=== PATIENT | female | born 1990 | race Caucasian/White ===

== ENCOUNTER 2020-07-20 16:59 | Emergency (ER) | payer BC, OTHER, SELFPAY ==
--- NOTE | ~2020-07-20 | XR_ITS ---
EXAMINATION: XR CHEST CLINICAL INFORMATION: Cough COMPARISON: None TECHNIQUE: Frontal view of the chest was obtained. FINDINGS: No significant abnormality is noted involving the heart, lungs, mediastinum, bony thorax or soft tissues. XR/XR chest 1V IMPRESSION: No radiographic evidence of pneumonia. No acute pulmonary process.
[2020-07-20 17:07] VITALS: BP 143/77; PULSE 96; RESP 20; TEMP 37.3; O2SAT 98; BMI 29.9
[2020-07-20 18:06] LABS: Glucose Urine UA NEG (NEG); Leukocyte Esterase Urine NEG (NEG); Nitrite Urine NEG (NEG); Specific Gravity - Urine 1.015 (1.005-1.025); Urine Blood NEG (NEG); Urine Ketones NEG (NEG); Urine Protein NEG (NEG-TRACE)
[2020-07-20 18:08] LABS: Appearance Urine CLEAR; Color Urine YELLOW
[2020-07-20 18:09] LABS: UPreg QC Valid YES; Urine Pregnancy NEGATIVE (NEGATIVE)
--- NOTE | 2020-07-20 18:22 | ED.GENADULT ---
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 on Wednesday complaint: viral syndrome Onset (ago): day(s) (2) Severity: mild Quality: aching Pain Consistency: constant Relieving factors: none Exacerbating factors: none Associated symptoms: fever/chills, headaches, loss of appetite, malaise, nausea/vomiting and other (back pain, sore throat) Treatments prior to arrival: NSAID Related Data Previous Rx's Medication Instructions Recorded cyclobenzaprine 10 mg PO TID PRN #14 tab 07/20/20 ibuprofen 600 mg PO Q6H PRN #30 tab 07/20/20 lidocaine 1 patch TOPICAL DAILY PRN #10 ea 07/20/20 ondansetron 4 mg PO Q8H PRN #20 tab 07/20/20 Allergies Allergy/AdvReac Type Severity Reaction Status Date / Time No Known Allergies Allergy Unverified 12/07/19 16:17 Review of Systems Review of Systems: Constitutional : positive Fever, positive Chills, positive fatigue, positive Malaise ENT/Mouth : positive sore throat, no runny nose Eyes: No Discharge Cardiovascular : No Chest Pain, No SOB Respiratory : No Cough, No Sputum Gastrointestinal : pos Nausea, pos Vomiting, pos Diarrhea Genitourinary : No Dysuria, No Urinary Frequency Musculoskeletal : positive Myalgia Skin : No rash Neuro : pos Headache All other systems reviewed and are negative [facility] Past Medical History Attestation statement: The following information was validated with the patient. Medical History Asthma Social History Social History (Updated 07/20/20 @ 18:59 by Lexus Cortes DO) Alcohol intake: never Smoking Status: Never smoker Use of substances other than those prescribed or required for medical reasons: No Advance Directives: No Advance Directives Information Provided: No Physical Exam Vital Signs: Vital Signs: Last Vital Signs Temp 98 F 07/20/20 20:31 Pulse 70 07/20/20 20:31 Resp 18 07/20/20 20:31 BP 124/70 07/20/20 20:31 Pulse Ox 99 07/20/20 20:31 Body Mass Index 29.9 Appearance: Alert. Oriented X3. No acute distress. Eyes: Pupils equal, round and reactive to light. ENT: Pharynx normal. Neck: Normal inspection. Neck supple. CVS: Normal heart rate and rhythm. Pulses normal. Respiratory: No respiratory distress. Breath sounds normal. Abdomen: Soft and nontender. Back: ttp along bilateral lower spine paraspinals no midline ttp Skin: Skin warm and dry. Normal skin color. Normal skin turgor. Extremities: No lower extremity edema. No calf ttp Neuro: Oriented X 3. No motor deficit. No sensory deficit. Course Course Course Narrative: no acute findings, does feel better, will send off flu, stable for DC labs and VS reassuring patient made aware of negative SARS/FLU/RSV Medical Decision Making MDM Narrative Medical decision making narrative: 29 yo female with viral like illness, sore throat n/v/d low back pain at this time will need labs, test, COVID swab, rapid strep, gentle fluids and medications to help her feel improved Lab Data Result diagrams: 07/20/20 19:22 07/20/20 19:21 Labs: Lab Results 07/20/20 07/20/20 07/20/20 Range/Units 17:41 17:53 17:53 WBC (4.8-10.8) X10*3/uL RBC (4.20-5.50) X10*6/uL Hgb (12.0-16.0) g/dl Hct (37-47) % MCV (80-98) fL MCH (27.0-33.0) pg MCHC (31.0-35.0) g/dl RDW (11.0-16.0) % Plt Count (160-400) X10*3/uL MPV (9.4-12.3) fL Immature Gran % (Auto) (0.0-0.4) % Neut % (Auto) (45-73) % Lymph % (Auto) (20-40) % Garden % (Auto) (2-11) % Eos % (Auto) (0-4) % Baso % (Auto) (0-2) % Lymph # (Auto) (1.2-4.9) X10*3/uL Garden # (Auto) (0.1-1.2) X10*3/uL Eos # (Auto) (0.0-0.4) X10*3/uL Baso # (Auto) (0.0-0.2) X10*3/uL Abs Immat Gran (auto) (0.00-0.03) X10*3/uL Absolute Neuts (auto) (2.0-8.3) X10*3/uL Absolute Nucleated RBC (0.0-0.012) X10*3/uL Nucleated RBC % (auto) (0.0-0.2) /100WBC Hold Blue Top Sodium (135-145) mmol/L Potassium (3.3-5.1) mmol/L Chloride (96-108) mmol/L Carbon Dioxide (22-29) mmol/L Anion Gap (12-20) BUN (9-16) mg/dL Creatinine (0.5-1.4) mg/dL Estim Creat Clear Calc Estimated GFR Random Glucose (60-115) mg/dL Calcium (8.4-10.2) mg/dL Magnesium (1.6-2.6) mg/dL Total Bilirubin (0.0-1.0) mg/dL Direct Bilirubin (0.0-0.5) mg/dL AST (5-31) U/L ALT (0-31) U/L Alkaline Phosphatase (39-117) U/L Total Protein (6.5-8.0) g/dL Albumin (3.5-5.0) g/dL Lipase (8-78) U/L Urine Color YELLOW Urine Appearance CLEAR Urine pH 7.0 (5.0-8.0) Ur Specific [place] 1.015 (1.005-1.025) Urine Protein NEG (NEG-TRACE) MG/DL Urine Glucose (UA) NEG (NEG) MG/DL Urine Ketones NEG (NEG) MG/DL Urine Blood NEG (NEG) Urine Nitrite NEG (NEG) Ur Leukocyte Esterase NEG (NEG) Urine Test NEGATIVE (NEGATIVE) Coronavirus (PCR) (Negative) COVID-19 (CHRISTINE) Negative (Negative) COVID-19 Clin Com See Note Influenza Type A (PCR) (Negative) Influenza Type B (PCR) (Negative) RSV RNA Qual (PCR) (Negative) 07/20/20 07/20/20 07/20/20 Range/Units 19:21 19:21 19:22 WBC 7.8 (4.8-10.8) X10*3/uL RBC 4.53 (4.20-5.50) X10*6/uL Hgb 13.6 (12.0-16.0) g/dl Hct 39.5 (37-47) % MCV 87.2 (80-98) fL MCH 30.0 (27.0-33.0) pg MCHC 34.4 (31.0-35.0) g/dl RDW 12.5 (11.0-16.0) % Plt Count 288 (160-400) X10*3/uL MPV 9.1 L (9.4-12.3) fL Immature Gran % (Auto) 0.3 (0.0-0.4) % Neut % (Auto) 66.3 (45-73) % Lymph % (Auto) 20.8 (20-40) % Garden % (Auto) 10.1 (2-11) % Eos % (Auto) 2.1 (0-4) % Baso % (Auto) 0.4 (0-2) % Lymph # (Auto) 1.6 (1.2-4.9) X10*3/uL Garden # (Auto) 0.8 (0.1-1.2) X10*3/uL Eos # (Auto) 0.2 (0.0-0.4) X10*3/uL Baso # (Auto) 0.0 (0.0-0.2) X10*3/uL Abs Immat Gran (auto) 0.02 (0.00-0.03) X10*3/uL Absolute Neuts (auto) 5.2 (2.0-8.3) X10*3/uL Absolute Nucleated RBC 0.000 (0.0-0.012) X10*3/uL Nucleated RBC % (auto) 0.0 (0.0-0.2) /100WBC Hold Blue Top Sodium 141 (135-145) mmol/L Potassium 3.8 (3.3-5.1) mmol/L Chloride 104 (96-108) mmol/L Carbon Dioxide 26 (22-29) mmol/L Anion Gap 15 (12-20) BUN 5 L (9-16) mg/dL Creatinine 0.77 (0.5-1.4) mg/dL Estim Creat Clear Calc 113.7 Estimated GFR > 60 Random Glucose 82 (60-115) mg/dL Calcium 9.5 (8.4-10.2) mg/dL Magnesium 2.0 (1.6-2.6) mg/dL Total Bilirubin 1.0 (0.0-1.0) mg/dL Direct Bilirubin 0.3 (0.0-0.5) mg/dL AST 21 (5-31) U/L ALT 25 (0-31) U/L Alkaline Phosphatase 68 (39-117) U/L Total Protein 6.9 (6.5-8.0) g/dL Albumin 4.5 (3.5-5.0) g/dL Lipase 21 (8-78) U/L Urine Color Urine Appearance Urine pH (5.0-8.0) Ur Specific [place] (1.005-1.025) Urine Protein (NEG-TRACE) MG/DL Urine Glucose (UA) (NEG) MG/DL Urine Ketones (NEG) MG/DL Urine Blood (NEG) Urine Nitrite (NEG) Ur Leukocyte Esterase (NEG) Urine Test (NEGATIVE) Coronavirus (PCR) (Negative) COVID-19 (CHRISTINE) (Negative) COVID-19 Clin Com Influenza Type A (PCR) (Negative) Influenza Type B (PCR) (Negative) RSV RNA Qual (PCR) (Negative) 07/20/20 07/20/20 Range/Units 19:22 20:42 WBC (4.8-10.8) X10*3/uL RBC (4.20-5.50) X10*6/uL Hgb (12.0-16.0) g/dl Hct (37-47) % MCV (80-98) fL MCH (27.0-33.0) pg MCHC (31.0-35.0) g/dl RDW (11.0-16.0) % Plt Count (160-400) X10*3/uL MPV (9.4-12.3) fL Immature Gran % (Auto) (0.0-0.4) % Neut % (Auto) (45-73) % Lymph % (Auto) (20-40) % Garden % (Auto) (2-11) % Eos % (Auto) (0-4) % Baso % (Auto) (0-2) % Lymph # (Auto) (1.2-4.9) X10*3/uL Garden # (Auto) (0.1-1.2) X10*3/uL Eos # (Auto) (0.0-0.4) X10*3/uL Baso # (Auto) (0.0-0.2) X10*3/uL Abs Immat Gran (auto) (0.00-0.03) X10*3/uL Absolute Neuts (auto) (2.0-8.3) X10*3/uL Absolute Nucleated RBC (0.0-0.012) X10*3/uL Nucleated RBC % (auto) (0.0-0.2) /100WBC Hold Blue Top SEE NOTE Sodium (135-145) mmol/L Potassium (3.3-5.1) mmol/L Chloride (96-108) mmol/L Carbon Dioxide (22-29) mmol/L Anion Gap (12-20) BUN (9-16) mg/dL Creatinine (0.5-1.4) mg/dL Estim Creat Clear Calc Estimated GFR Random Glucose (60-115) mg/dL Calcium (8.4-10.2) mg/dL Magnesium (1.6-2.6) mg/dL Total Bilirubin (0.0-1.0) mg/dL Direct Bilirubin (0.0-0.5) mg/dL AST (5-31) U/L ALT (0-31) U/L Alkaline Phosphatase (39-117) U/L Total Protein (6.5-8.0) g/dL Albumin (3.5-5.0) g/dL Lipase (8-78) U/L Urine Color Urine Appearance Urine pH (5.0-8.0) Ur Specific [place] (1.005-1.025) Urine Protein (NEG-TRACE) MG/DL Urine Glucose (UA) (NEG) MG/DL Urine Ketones (NEG) MG/DL Urine Blood (NEG) Urine Nitrite (NEG) Ur Leukocyte Esterase (NEG) Urine Test (NEGATIVE) Coronavirus (PCR) NEGATIVE (Negative) COVID-19 (CHRISTINE) (Negative) COVID-19 Clin Com Influenza Type A (PCR) NEGATIVE (Negative) Influenza Type B (PCR) NEGATIVE (Negative) RSV RNA Qual (PCR) NEGATIVE (Negative) Discharge Plan Discharge Clinical Impression: Viral infection Patient Disposition: Home, Self-Care Instructions: Viral Syndrome (ED) Additional Instructions: return to ED for any worsening symptoms or concerns your COVID was negative, flu pending I will call you with results Prescriptions: New cyclobenzaprine 10 mg tablet 10 mg PO TID PRN (Reason: muscle spasm) Qty: 14 RF: 0 lidocaine 4 % adhesive patch,medicated 1 patch topical DAILY PRN (Reason: pain) Qty: 10 RF: 0 ibuprofen 600 mg tablet 600 mg PO Q6H PRN (Reason: pain) Qty: 30 RF: 0 ondansetron 4 mg tablet,disintegrating 4 mg PO Q8H PRN (Reason: nausea and vomiting) Qty: 20 RF: 0 Referrals: Vitor Rosado MD [Primary Care Provider] - 3 days (if not better) Stand Alone Forms: Work/School Release Interventions: ED Discharge Assessment Last Done: 07/20/20 21:28 Discharge Date/Time: 07/20/20 21:28
[2020-07-20 19:07] LABS: COVID-19 Test Negative (Negative)
[2020-07-20 19:13] VITALS: BP 127/80; PULSE 78; RESP 16; TEMP 37.3; O2SAT 100
[2020-07-20] MEDS: 0.9 % Sodium Chloride 1,000 ML 999 ML IVCONT (19:21)
[2020-07-20] MEDS: Cyclobenzaprine HCl 10 MG TABLET PO (19:21)
[2020-07-20] MEDS: Ketorolac Tromethamine 30 MG/ML VIAL IVPUSH (19:21)
[2020-07-20] MEDS: ondansetron HCL 4 MG/2 ML VIAL IVPUSH (19:21)
[2020-07-20 19:30] LABS: MANUAL DIFF FLAG NO
[2020-07-20 19:32] LABS: Basophils Percent Auto 0.4 % (0-2); Eosinophils Absolute Auto 0.2 X10*3/uL (0.0-0.4); Eosinophils Percent Auto 2.1 % (0-4); Hematocrit 39.5 % (37-47); Hemoglobin 13.6 g/dl (12.0-16.0); Imm Gran Abs Auto 0.02 X10*3/uL (0.00-0.03); Imm Gran Pct Auto 0.3 % (0.0-0.4); Lymphocytes Absolute Auto 1.6 X10*3/uL (1.2-4.9); Lymphocytes Percent Auto 20.8 % (20-40); Mean Corpuscular HGB Conc 34.4 g/dl (31.0-35.0); Mean Corpuscular Volume 87.2 fL (80-98); Mean Platelet Volume 9.1 fL (9.4-12.3); Monocytes Absolute Auto 0.8 X10*3/uL (0.1-1.2); Monocytes Percent Auto 10.1 % (2-11); Neutrophils Absolute Auto 5.2 X10*3/uL (2.0-8.3); Neutrophils Percent Auto 66.3 % (45-73); Platelet Count 288 X10*3/uL (160-400); Red Blood Count 4.53 X10*6/uL (4.20-5.50); Red Cell Distribution Width 12.5 % (11.0-16.0); White Blood Count 7.8 X10*3/uL (4.8-10.8)
[2020-07-20 20:02] LABS: Anion Gap 15 (12-20); Blood Urea Nitrogen 5 mg/dL (9-16); Calcium 9.5 mg/dL (8.4-10.2); Carbon Dioxide 26 mmol/L (22-29); Chloride 104 mmol/L (96-108); Creatinine Clr Calc Pharmacy 113.7; Estimated Glomerular Filt Rate > 60; Glucose Random 82 mg/dL (60-115); Potassium 3.8 mmol/L (3.3-5.1); Sodium 141 mmol/L (135-145)
[2020-07-20 20:03] LABS: Alanine Aminotransferase 25 U/L (0-31); Albumin Level 4.5 g/dL (3.5-5.0); Alkaline Phosphatase 68 U/L (39-117); Aspartate Amino Transferase 21 U/L (5-31); Bilirubin Direct 0.3 mg/dL (0.0-0.5); Lipase 21 U/L (8-78); Total Protein 6.9 g/dL (6.5-8.0)
[2020-07-20 20:31] VITALS: BP 124/70; PULSE 70; RESP 18; TEMP 36.6; O2SAT 99
[2020-07-20 21:25] LABS: Influenza A PCR NEGATIVE (Negative); Influenza B PCR NEGATIVE (Negative); Resp Syncy Virus RNA Qual PCR NEGATIVE (Negative); SARS COV2 PCR INHOUSE NEGATIVE (Negative)
== END 2020-07-20 21:28 | disposition home or self-care (01) ==
PROVIDERS: Emergency Provider Emergency Medicine; PCP Family Medicine
DX: B34.9 Viral infection, unspecified (principal); R50.9 Fever, unspecified; R51.9 Headache, unspecified; Z20.822 Contact with and (suspected) exposure to COVID-19; Z79.899 Other long term (current) drug therapy
CPT/HCPCS: 0241U; 36415; 71045; 80048; 80076; 81003; 81025; 83690; 83735; 85025; 87071; 87635; 87880; 96365; 96375; 99285; J1885; J2405

== ENCOUNTER 2022-06-01 12:03 | Emergency (ER) | payer BC, OTHER, SELFPAY ==
[2022-06-01 12:12] VITALS: BP 109/73; PULSE 96; O2SAT 98
[2022-06-01 12:21] VITALS: BP 146/83; PULSE 89; RESP 16; TEMP 37.1; O2SAT 98; BMI 32.5
--- OUTSIDE RECORDS SUMMARY | 2022-06-01 13:04 | XMS_ITS | Continuity of Care Document ---
:1990 Author Organization [facility] [place] Adult Address [address] [place] [address]- Care Team Providers Name Role Phone Alonzo GONZALES, Vitor Schmidt Primary Care Physician Encounter [facility] Date(s): 04/18/20 - 05/18/20 [facility] [place] Adult [address] [place] [address]- Allergies, Adverse Reactions, Alerts Substance Reaction Severity Status Dust Active Pollen1 Active 1trees Immunizations Given and Recorded Vaccine Date Status Refusal Reason tetanus/diphtheria/pertussis, acel(Tdap) 09/06/10 Given Medications amitriptyline 10 mg oral tablet 10 mg, 1, tablet, By Mouth, Daily at bedtime, # 30 tablet, Refills 2, Tot. Refills 2, Maintenance, 04/19/20 16:29:00 EST, Route to Pharmacy Electronically, [facility]/pharmacy #[id number], Partial fill upon patientrequest if the prescription is for a schedule II... Start Date: 04/19/20 Status: OrderedMultivitamin Daily, 0 Refills, Maintenance, 11/19/18 10:50:09 EDT Start Date: 11/19/18 Status: OrderedProbiotic Formula By Mouth, Daily, 0 Refills, Maintenance, 11/08/19 10:36:00 EDT Start Date: 11/08/19 Status: Ordered Problem List Condition Effective Dates Status Health Status Informant Allergic rhinitis(Confirmed) Active Herpes, genital(Confirmed) Active Migraine(Confirmed) Active Depression with anxiety(Confirmed) Active Dyspareunia, female(Confirmed) Active (Confirmed) Active TMJ disease(Confirmed) Active Social History Social History Type Response Smoking Status Former smoker; Other: Quit 2 010; entered on: 09/20/13 Sex
--- OUTSIDE RECORDS SUMMARY | 2022-06-01 13:04 | XMS_ITS | Continuity of Care Document ---
:1990 Author Organization [facility] Address [address] [place] [address]- Care Team Providers Name Role Phone Alonzo GONZALES, Vitor Schmidt Primary Care Physician Encounter [facility] [place] Date(s): 01/24/21 - 01/31/21 [facility] [address] [place], [place] [address] Attending Physician: Not on Staff, Attending MD Allergies, Adverse Reactions, Alerts Substance Reaction Severity Status Dust Active Pollen1 Active 1trees Immunizations Given and Recorded Vaccine Date Status Refusal Reason tetanus/diphtheria/pertussis, acel(Tdap) 09/06/10 Given Medications Diflucan 150 mg oral tablet 1 tablet = 150 mg, By Mouth, Every 48 hours, take 1 tablet today, then if still symptomatic in 48, #2 tablet, 0 Refills, Maintenance, 01/27/21 10:28:00 EST, Tablet, [id number], Partial fill upon patient request if the prescription is for a sc... Start Date: 01/27/21 Stop Date: 01/29/21 Status: OrderedMultivitamin Daily, 0 Refills, Maintenance, 11/19/18 [...]
--- OUTSIDE RECORDS SUMMARY | 2022-06-01 13:04 | XMS_ITS | Continuity of Care Document ---
:1990 Author Organization [facility] Adult Address [address] [place] [address]- Care Team Providers Name Role Phone Vitor Rosado MD Primary Care Physician Encounter [facility] [place] Date(s): 03/24/19 - 05/24/19 [facility] Adult [address] [place] [address]- [facility] Attending Physician: Vitor Rosado MD Allergies, Adverse Reactions, Alerts Substance Reaction Severity Status Dust Active Pollen1 Active 1trees Immunizations Given and Recorded Vaccine Date Status Refusal Reason tetanus/diphtheria/pertussis, acel(Tdap) 09/06/10 Given Medications clonazePAM 0.5 mg oral tablet 1 tablet = 0.5 mg, By Mouth, 2 times a day, PRN vertigo, # 60 tablet, 1 Refills, Maintenance, 12/15/18 7:32:46 EDT Start Date: 12/15/18 Status: OrderedFLUoxetine 10 mg oral tablet 1 tablet = 10 mg, By Mouth, Daily, # 30 tablet, 5 Refills, Maintenance, 04/25/19 6:55:00 EST, Tablet, [facility]/pharmacy #[id number], 165, cm, 03/24/19 8:47:00 EST, Height, 74.1, kg, 11/01/18 0:13:00 EDT, Dry Weight Start Date: 04/25/19 Status: OrderedMultivitamin Daily, 0 Refills, Maintenance, 11/19/18 10:50:09 EDT Start Date: 11/19/18 Status: OrderedOrtho Micronor 0.35 mg oral tablet 1 tablet = 0.35 mg, By Mouth, Daily, # 28 tablet, 11 Refills, Maintenance, 01/24/19 13:35:54 EST, Tablet Start Date: 01/24/19 Status: OrderedProvera 10 mg oral tablet 10 mg, 1, tablet, By Mouth, 2 times a day, # 24 tablet, Refills 0, Tot. Refills 0, Maintenance, 12/30/18 13:36:32 EDT, Route to Pharmacy Electronically, [id number], [facility]/pharmacy #[id number] Start Date: 12/30/18 Stop Date: 01/11/19 Status: Ordered Problem List Condition Effective Dates Status Health Status Informant Allergic rhinitis(Confirmed) Active Herpes, genital(Confirmed) Active Migraine(Confirmed) Active Depression with anxiety(Confirmed) Active (Confirmed) Active TMJ disease(Confirmed) Active Social History Social History Type Response Smoking Status Former smoker; Other: Quit 2 010; entered on: 09/20/13 Sex
--- OUTSIDE RECORDS SUMMARY | 2022-06-01 13:04 | XMS_ITS | Continuity of Care Document ---
:1990 Author Organization [facility] Address [address] [place] [address]- Care Team Providers Name Role Phone Alonzo GONZALES, Vitor Schmidt Primary Care Physician [place] [facility] [place]s): 11/08/19 - 11/15/19 [facility] [address] [place] [address]- [facility] Attending Physician: Naila GONZALES, Swapna Reich Allergies, Adverse Reactions, Alerts Substance Reaction Severity Status Dust Active Pollen1 Active 1trees Immunizations Given and Recorded Vaccine Date Status Refusal Reason tetanus/diphtheria/pertussis, acel(Tdap) 09/06/10 Given Medications [place]away 0.025% ophthalmic solution 1 drops, Eyes, Both, Every 12 hours, for 7 days, # 1 each, 0 Refills, Acute 11/17/19 13:10:00 EDT, 11/10/19 13:10:00 EDT, [id number], 1 drops Eyes, Both Every 12 hours,x7 days, 165, cm, 11/08/19 10:26:00 EDT, Height, 81.7, kg, 11/08/19 10:26:0... Start Date: 11/10/19 Stop Date: 11/17/19 Status: OrderedMultivitamin Daily, 0 Refills, Maintenance, 11/19/18 10:50:09 EDT Start Date: 11/19/18 Status: OrderedProbiotic Formula By Mouth, Daily, 0 Refills, Maintenance, 11/08/19 10:36:00 EDT Start Date: 11/08/19 Status: Ordered Problem List Condition Effective Dates Status Health Status Informant Allergic rhinitis(Confirmed) Active Herpes, genital(Confirmed) Active Migraine(Confirmed) Active Depression with anxiety(Confirmed) Active Dyspareunia, female(Confirmed) Active (Confirmed) Active TMJ disease(Confirmed) Active Vital Signs Most recent to oldest [Reference Range]: 1 Height 165 cm (11/08/19 10:26 AM) Weight 81.7 kg (11/08/19 10:26 AM) Body Mass Index [18.5-24.99] 30.01 *>HHI* (11/08/19 10:26 AM) Blood Pressure [90-138/55-84 mm Hg] 139/84 mm Hg *H* (11/08/19 10:26 AM) Temperature [96.8-100.4 DegF] 97.1 DegF (11/08/19 10:26 AM) Blood pressure sites Arm, right (11/08/19 10:26 AM) Temperature Route Temporal (11/08/19 10:26 AM) Dry Weight 81.7 kg (11/08/19 10:26 AM) Weight Obtained Via Standing scale (11/08/19 10:26 AM) Dry Weight Obtained Via Standing scale (11/08/19 10:26 AM) Social History Social History Type Response Smoking Status Former smoker; Other: Quit 2 010; entered on: 09/20/13 Sex
--- OUTSIDE RECORDS SUMMARY | 2022-06-01 13:04 | XMS_ITS | Continuity of Care Document ---
:1990 Author Organization [facility] Address [address] [place] [address]- Care Team Providers Name Role Phone Vitor Rosado MD Primary Care Physician [place] [facility] [id number] Date(s): 04/18/19 - 04/28/19 [facility] [address] [place] [address]- [facility] Attending Physician: Matthew Branch Admitting Physician: AdmMatthew jules Referring Physician: AdmtrMatthew Allergies, Adverse Reactions, Alerts Substance Reaction Severity [...] 5 Refills, Maintenance, 04/25/19 6:55:00 EST, Tablet, [id number], 165, cm, 03/24/19 8:47:00 EST, Height, 74.1, kg, 11/01/18 0:13:00 EDT, Dry Weight Start Date: 04/25/19 Status: OrderedMultivitamin Daily, 0 Refills, Maintenance, 11/19/18 10:50:09 EDT Start Date: 11/19/18 Status: OrderedOrtho Micronor 0.35 mg oral tablet 1 tablet = 0.35 mg, By Mouth, Daily, # 28 tablet, 11 Refills, Maintenance, 11/05/19 13:35:54 EST, Tablet Start Date: 01/24/19 Status: OrderedProvera 10 mg oral tablet 10 mg, 1, tablet, By Mouth, 2 times a day, # 24 tablet, Refills 0, Tot. Refills 0, Maintenance, 12/30/18 13:36:32 EDT, Route to Pharmacy Electronically, [id number], [facility]/pharmacy #[id number] Start Date: 12/30/18 Stop Date: 01/11/19 Status: Ordered Problem List Condition Effective Dates Status Health Status Informant Allergic rhinitis(Confirmed) Active Herpes, genital(Confirmed) Active Migraine(Confirmed) Active Depression with anxiety(Confirmed) Active (Confirmed) Active TMJ disease(Confirmed) Active Social History Social History Type Response Smoking Status Former smoker; Other: Quit 2 010; entered on: 09/20/13 Sex
--- OUTSIDE RECORDS SUMMARY | 2022-06-01 13:04 | XMS_ITS | Continuity of Care Document ---
:1990 Author Organization [facility] Adult Address [address] [place] [address]- Care Team Providers Name Role Phone Alonzo GONZALES, Vitor Schmidt Primary Care Physician Encounter [facility] [place] Date(s): 07/22/20 - 08/21/20 [facility] [address] [place] [address]- Allergies, Adverse Reactions, Alerts Substance Reaction Severity Status Dust Active Pollen1 Active 1trees Immunizations Given and Recorded Vaccine Date Status Refusal Reason tetanus/diphtheria/pertussis, acel(Tdap) 09/06/10 Given Medications amitriptyline 10 mg oral tablet 10 mg, 1, tablet, By Mouth, Daily at bedtime, # 30 tablet, Refills 2, Tot. Refills 2, Maintenance, 07/09/20 11:08:00 EDT, Route to Pharmacy Electronically, [facility]/pharmacy #[id number], Partial fill upon patientrequest if the prescription is for a schedule II... Start Date: 07/09/20 Status: OrderedMultivitamin Daily, 0 Refills, Maintenance, 11/19/18 [...]
--- OUTSIDE RECORDS SUMMARY | 2022-06-01 13:04 | XMS_ITS | Continuity of Care Document ---
:1990 Author Organization [facility] Address [address] [place] [address]- Care Team Providers Name Role Phone Alonzo GONZALES, Vitor Schmidt Primary Care Physician Encounter [facility] [place] Date(s): 11/10/19 - 12/10/19 [facility] [address] [place] [address]- [facility] Allergies, Adverse Reactions, Alerts Substance Reaction Severity Status Dust Active Pollen1 Active 1trees Immunizations Given and Recorded Vaccine Date Status Refusal Reason tetanus/diphtheria/pertussis, acel(Tdap) 09/06/10 Given Medications Multivitamin Daily, 0 Refills, Maintenance, 11/19/18 10:50:09 EDT [...]
--- OUTSIDE RECORDS SUMMARY | 2022-06-01 13:05 | XMS_ITS | Continuity of Care Document ---
:1990 Author Organization [facility] Address [address] [place] [address]- Care Team Providers Name Role Phone Vitor Rosado MD Primary Care Physician [place] [facility] [place]28[place] - 04/28/[address] [address]- [facility] Attending Physician: Vitor Rosado MD Allergies, [...] 5 Refills, Maintenance, 04/25/19 6:55:00 EST, Tablet, [facility]/pharmacy #[id number], 165, cm, 03/24/19 8:47:00 [...] 12/30/18 13:36:32 EDT, Route to Pharmacy Electronically, [id number], [id number] Start Date: 12/30/18 Stop Date: 01/11/19 Status: Ordered Problem List Condition Effective Dates Status Health Status Informant Allergic rhinitis(Confirmed) Active Herpes, genital(Confirmed) Active Migraine(Confirmed) Active Depression with anxiety(Confirmed) Active (Confirmed) Active TMJ disease(Confirmed) Active Social History Social History Type Response Smoking Status Former smoker; Other: Quit 2 010; entered on: 09/20/13 Sex
--- OUTSIDE RECORDS SUMMARY | 2022-06-01 13:05 | XMS_ITS | Continuity of Care Document ---
:1990 Author Organization [facility] Address [address] [place] [address]- Care Team Providers Name Role Phone Alonzo GONZALES, Vitor Schmidt Primary Care Physician Encounter [facility] Date(s): 11/10/19 - 12/10/19 [facility] [address] [place] [address]- [facility] Allergies, Adverse Reactions, Alerts Substance Reaction [...]
--- OUTSIDE RECORDS SUMMARY | 2022-06-01 13:05 | XMS_ITS | Continuity of Care Document ---
:1990 Author Organization [facility] Adult Address [address] [place] [address]- Care Team Providers Name Role Phone Alonzo GONZALES, Vitor Schmidt Primary Care Physician [place] [facility] [place](s): 03/29/20 - 04/05/20 [facility] [address] [place] [address]- Attending Physician: Ramón Vargas MD Allergies, Adverse Reactions, Alerts Substance Reaction [...] oldest [Reference Range]: 1 Height 165 cm (03/29/20 8:13 AM) Social History Social History Type Response Smoking Status Former smoker; Other: Quit 2 010; entered on: 09/20/13 Sex
--- OUTSIDE RECORDS SUMMARY | 2022-06-01 13:05 | XMS_ITS | Continuity of Care Document ---
:1990 Author Organization [facility] Address [address] [place] [address]- Care Team Providers Name Role Phone Vitor Rosado MD Primary Care Physician Encounter [facility] [place] Date(s): 07/24/20 - 07/31/20 [facility] [address] [place] [address]- Attending Physician: Vitor Rosado MD Allergies, Adverse Reactions, Alerts Substance Reaction Severity Status Dust Active Pollen1 Active 1trees Immunizations Given and Recorded Vaccine Date Status Refusal Reason tetanus/diphtheria/pertussis, acel(Tdap) 09/06/10 Given Medications amitriptyline 10 mg oral tablet 10 mg, 1, tablet, By Mouth, Daily at bedtime, # 30 tablet, Refills 2, Tot. Refills 2, Maintenance, 07/09/20 11:08:00 EDT, Route to Pharmacy Electronically, [facility]/pharmacy #[id number], Partial fill upon patientrequest if the prescription [...]
--- OUTSIDE RECORDS SUMMARY | 2022-06-01 13:05 | XMS_ITS ---
:1990 Author Care Team Providers Name Role Phone MIGUEL BAUTISTA Design Printer Balloon [phone] LOTUS AVERY PA-C Primary Care Provider [phone] Allergies Code Code System Name Reaction Severity Status Onset NKDA ? Medications Name Status Start Date Stop Date ? ? cyclobenzaprine 5 mg tablet Completed ? 05/21 Take 1 tablet 3 times a day by oral route for 30 days. fluoxetine 20 mg capsule Completed ? 017 fluoxetine 40 mg capsule Active ? Not rajeev ilable TAKE ONE CAPSULE BY MOUTH EVERY DAY meclizine 12.5 mg tablet Active ? Not rajeev ilable Take 1 tablet 3 times a day by oral route as needed for 10 days . metoclopramide 5 mg tablet Completed ? 01/26 multivitamin tablet Active ? Not availabl e Take 1 tablet every day by oral route. Pyridium 200 mg tablet Active ? Not avail able Take 1 tablet 3 times a day by oral route for 5 days. sumatriptan 50 mg tablet Active ? Not rajeev ilable Take 1 tablet twice a day by oral route as needed for 30 days. Problems Name Status Onset Date Source ? Depressive Disorder Active 07/19/2017 ? Procedures Date Name Performed by ? 08/21/2015 Information not avai lable ? Tooth Root Removal Information not avai lable Notes: [place] teeth extraction Results Lab Results Date Name Specimen Result Interpretation Description Value Range Status Address ? 09/16/2017 Urinalysis, Urine ? Appear/color ? ? F inal [facility] Complete clean Referenc e catch Laboratori es: [address], [place] ? ? Urine ? Sp. Whick 1.003 (1.0 Final [place] clean 02- Reference catch .030 Laboratori es: ) [address], [place] ? ? Urine ? Urine pH 6.0 (4.0 Final [facility] clean -8.0 Reference catch ) Laboratori es: [address] [place] ? ? Urine ? Urine negative (neg Final [facility] clean Albumin ) Reference catch Laboratori es: [address], [place] ? ? Urine ? Urine negative (neg Final [facility] clean Glucose ) Reference catch Laboratori es: [address], [place] ? ? Urine ? Urine negative (neg Final [facility] clean Ketones ) Reference catch Laboratori es: [address], [place] ? ? Urine ? Urine negative (neg Final [facility] clean Bilirubin ) Referen ce catch Laboratori es: [address], [place] ? ? Urine ? Urine negative (neg Final [facility] clean Hemoglobn ) Referen ce catch Laboratori es: [address], [place] ? ? Urine ? Urine negative (neg Final [facility] clean Nitrite ) Reference catch Laboratori es: [address], [place] ? ? Urine ? Urine negative (neg Final [facility] clean Leukocyte ) Referen ce catch Laboratori es: [address], [place] ? ? Urine ? Urobilinogen normal (nor Final [place] clean mg/dL m) Reference catch mg/d Laboratori es: L [address], [place] ? ? Urine ? Urine WBC's none seen (0-5 Final [facility] clean /hpf ) Reference catch /hpf Laboratori es: [address], [place] ? ? Urine ? Urine RBC's 1 /hpf (<3) Final [facility] leong clean /hpf Reference catch Laboratori es: [address], [place] ? ? Urine ABNORMAL Bacteria slight (neg Final [facility] hpf ) Reference catch hpf Laboratori es: [address], [place] ? ? Urine ? Squamous 2 /hpf ? Final [facility] Epith Reference catch Laboratori es: [address], [place] 09/16/2017 Culture, Urine ? Specimen clean ? Final [facility] Urine clean Description catch Refer ence catch (urine) Laborator ies: [address], [place] ? ? Urine ? Special none ? Final [facility] clean Requests Referenc e catch Laboratori es: [address], [place] ? ? Urine ? Culture no growth ? Final [facility] Reference catch Laborator[facility]: [address], [place] ? ? Urine ? Report final ? Final [facility] clean Status Referen ce catch 8 Laboratori es: Jackelin Sheikh, [place] 09/16/2017 Urinalysis, Urine ? Leukocytes Negative ? ? In-Office Dipstick clean Order: catch Internal U se Only DO No t Attach Compendium DO Not Attach Compendium , Do Not Delete/parviz ge ? ? Urine ? Nitrite negative ? ? In-Off ice clean Order: catch Internal U se Only DO No t Attach Compendium DO Not Attach Compendium , Do Not Delete/parviz ge ? ? Urine ? Urobilinogen .2 ? ? In- Office clean Order: catch Internal U se Only DO No t Attach Compendium DO Not Attach Compendium , Do Not Delete/parviz ge ? ? Urine ? Protein Negative ? ? In-Off ice clean Order: catch Internal U se Only DO No t Attach Compendium DO Not Attach Compendium , Do Not Delete/parviz ge ? ? Urine ? Ph 6.0 ? ? In-Office clean Order: catch Internal U se Only DO No t Attach Compendium DO Not Attach Compendium , Do Not Delete/parviz ge ? ? Urine ? Blood Negative ? ? In-Offic e clean Order: catch Internal U se Only DO No t Attach Compendium DO Not Attach Compendium , Do Not Delete/parviz ge ? ? Urine ? Specific 1.015 ? ? In-Offi ce clean Whick Order: catch Internal U se Only DO No t Attach Compendium DO Not Attach Compendium , Do Not Delete/parviz ge ? ? Urine ? Ketone Negative ? ? In-Offi ce clean Order: catch Internal U se Only DO No t Attach Compendium DO Not Attach Compendium , Do Not Delete/parviz ge ? ? Urine ? Bilirubin Negative ? ? In-O ffice clean Order: catch Internal U se Only DO No t Attach Compendium DO Not Attach Compendium , Do Not Delete/parviz ge ? ? Urine ? Glucose Negative ? ? In-Off ice clean Order: catch Internal U se Only DO No t Attach Compendium DO Not Attach Compendium , Do Not Delete/parviz ge ? ? Urine ? Appearance Clear ? ? In-Of fice clean Order: catch Internal U se Only DO No t Attach Compendium DO Not Attach Compendium , Do Not Delete/parviz ge ? ? Urine ? Color Pale ? ? In-Office clean Yellow Order: catch Internal U se Only DO No t Attach Compendium DO Not Attach Compendium , Do Not Delete/parviz ge Past Encounters None recorded. Social History Tobacco Smoking Status Former Smoker (2 packs per day) Vaccine List Vaccine Type Tdap 07/19/2017?0.5 mL Plan of Care Reminders Provider Appointments None recorded. ? ? Lab None recorded. ? ? Referral None recorded. ? ? Procedures None recorded. ? ? Surgeries None recorded. ? ? Imaging None recorded. ? ? Vitals 09/16/2017 02:30PM URGENT Height Weight BMI Blood Pressure 5 ft 5 in 154 lbs 12.8 oz 25.8 kg/m2 116/72 mm[Hg] 07/19/2017 03:00PM FOLLOW UP 30MIN Height Weight BMI Blood Pressure 5 ft 5 in 157 lbs 6 oz 26.2 kg/m2 06/12/2017 10:15AM URGENT Height Weight BMI Blood Pressure 5 ft 5 in 159 lbs 2 oz 26.5 kg/m2 132/85 mm[Hg] 01/26/2017 10:30AM FOLLOW UP Height Weight BMI Blood Pressure 5 ft 5 in 157 lbs 16 oz 26.3 kg/m2 134/78 mm[Hg] 09/25/2016 11:00AM NEW PT Height Weight BMI Blood Pressure 5 ft 5 in 163 lbs 27.1 kg/m2 128/72 mm[Hg]
--- OUTSIDE RECORDS SUMMARY | 2022-06-01 13:05 | XMS_ITS | Continuity of Care Document ---
:1990 Author Organization [facility] Adult Address [address] [place] [address]- Care Team Providers Name Role Phone Alonzo GONZALES, Vitor Schmidt Primary Care Physician Encounter [facility] [place] Date(s): 06/20/20 - 07/20/20 [facility] Adult [address] [place] [address]- Allergies, Adverse Reactions, Alerts Substance Reaction Severity Status Dust Active Pollen1 Active 1trees Immunizations Given and Recorded Vaccine Date Status Refusal Reason tetanus/diphtheria/pertussis, acel(Tdap) 09/06/10 Given Medications amitriptyline 10 mg oral tablet 10 mg, 1, tablet, By Mouth, Daily at bedtime, # 30 tablet, Refills 2, Tot. Refills 2, Maintenance, 07/09/20 11:08:00 EDT, Route to Pharmacy Electronically, [facility]/pharmacy #[id number], Partial fill upon patientrequest if the prescription [...]
--- OUTSIDE RECORDS SUMMARY | 2022-06-01 13:05 | XMS_ITS | Continuity of Care Document ---
:1990 Author Organization [facility] Adult Address [address] [place] [address]- Care Team Providers Name Role Phone Alonzo GONZALES, Vitor Schmidt Primary Care Physician Encounter [place] Date(s): 07/24/20 - 08/23/20 [facility] [address] [place] [address]- Allergies, Adverse Reactions, Alerts Substance Reaction Severity Status Dust Active Pollen1 Active 1trees Immunizations Given and Recorded Vaccine Date Status Refusal Reason tetanus/diphtheria/pertussis, acel(Tdap) 09/06/10 Given Medications amitriptyline 10 mg oral tablet 10 mg, 1, tablet, By Mouth, Daily at bedtime, # 30 tablet, Refills 2, Tot. Refills 2, Maintenance, 07/09/20 11:08:00 EDT, Route to Pharmacy Electronically, [facility]/pharmacy #[id number], Partial fill upon patientrequest if the prescription [...]
--- OUTSIDE RECORDS SUMMARY | 2022-06-01 13:05 | XMS_ITS | Continuity of Care Document ---
:1990 Author Organization [facility] Adult Address [address] [place] [address]- Care Team Providers Name Role Phone Alonzo GONZALES, Vitor Schmidt Primary Care Physician Encounter [facility] [place] Date(s): 07/23/20 - 08/22/20 [facility] Adult [address] [place] [address]- Allergies, Adverse Reactions, Alerts Substance Reaction Severity Status Dust Active Pollen1 Active 1trees Immunizations Given and Recorded Vaccine Date Status Refusal Reason tetanus/diphtheria/pertussis, acel(Tdap) 09/06/10 Given Medications amitriptyline 10 mg oral tablet 10 mg, 1, tablet, By Mouth, Daily at bedtime, # 30 tablet, Refills 2, Tot. Refills 2, Maintenance, 07/09/20 11:08:00 EDT, Route to Pharmacy Electronically, [facility]/pharmacy #[id number], Partial fill upon patientrequest if the prescription [...]
--- OUTSIDE RECORDS SUMMARY | 2022-06-01 13:05 | XMS_ITS | Continuity of Care Document ---
:1990 Author Organization [facility] Adult Address [address] [place] [address]- Care Team Providers Name Role Phone Alonzo GONZALES, Vitor Schmidt Primary Care Physician Encounter [facility] Date(s): 09/27/19 - 10/27/19 [facility] [place] Adult [address] [place] [address]- [facility] Allergies, Adverse Reactions, Alerts Substance Reaction Severity [...] 5 Refills, Maintenance, 04/25/19 6:55:00 EST, Tablet, [facility]/pharmacy #[id number], 165, cm, 03/24/19 8:47:00 EST, Height, [...] 12/30/18 13:36:32 EDT, Route to Pharmacy Electronically, [id number], [facility]/pharmacy #[id number] Start Date: 12/30/18 Stop Date: 01/11/19 Status: Ordered Problem List Condition Effective Dates Status Health Status Informant Allergic rhinitis(Confirmed) Active Herpes, genital(Confirmed) Active Migraine(Confirmed) Active Depression with anxiety(Confirmed) Active (Confirmed) Active TMJ disease(Confirmed) Active Social History Social History Type Response Smoking Status Former smoker; Other: Quit 2 010; entered on: 09/20/13 Sex
--- OUTSIDE RECORDS SUMMARY | 2022-06-01 13:05 | XMS_ITS | Continuity of Care Document ---
:1990 Author Organization [facility] Address [address] [place] [address]- Care Team Providers Name Role Phone Alonzo GONZALES, Vitor Schmidt Primary Care Physician Encounter [facility] Date(s): 03/26/22 - 04/02/22 [facility] [address] [place] [address]- Attending Physician: Thais Pollard MD Allergies, Adverse Reactions, Alerts Substance Reaction Severity Status Dust Active Pollen1 Active 1trees Immunizations Given and Recorded Vaccine Date Status Refusal Reason tetanus-diphtheria toxoids (Td) 09/08/20 Recorded tetanus/diphtheria/pertussis, acel(Tdap) 07/19/17 Recorde d tetanus/diphtheria/pertussis, acel(Tdap) 09/06/10 Given Medications norethindrone 5 mg oral tablet 5 mg, 1, tablet, By Mouth, Daily, # 90 tablet, Refills 1, Tot. Refills 1, Maintenance, 03/26/22 15:58:00 EST, Route to Pharmacy Electronically, [facility]/pharmacy #[id number], Partial fill upon patient request if the prescription is for a schedule II opioid drug.... Start Date: 03/26/22 Status: Ordered Problem List Condition Confirmation Course Effective Dates Status Health Stat us Informant Allergic rhinitis Confirmed Active Chronic pelvic Confirmed Active pain in female COVID-19 virus Confirmed Active infection Herpes, genital1 Confirmed 2008 Active History of herpes Confirmed Active genitalis Migraine Confirmed Active Depression with Confirmed Active anxiety Dyspareunia, Confirmed Active female Confirmed Active TMJ disease Confirmed Active 1HSV 1 genital lesion and on pap. Vital Signs Most recent to oldest [Reference Range]: 1 Height 165 cm (03/26/22 3:22 PM) Blood Pressure [90-138/55-84 mm Hg] 124/70 mm Hg (03/26/22 3:22 PM) Blood pressure sites Arm, left (03/26/22 3:22 PM) Social History Social History Type Response Smoking Status Former smoker; Other: Quit 2 010; entered on: 09/20/13 Sex Note Latrice GONZALES, Thais F: PERFORM, SIGN, VERIFY Event Display: Patient Education/Instruction Authored Date: [id number] [facility] *[facility] Clinical Summary Name CAITLIN BROWN Age 31 Years 1990 PCP Alonzo GONZALES, Vitor Schmidt PCP Visit Date 03/26/2022 15:02:00 Additional Instructions: Norethindrone once daily. This may suppress your period. If you do have menstrual bleeding please keep a menstrual calendar. You should receive a call from our office regarding surgical booking for laparoscopy with excision of possible endometriosis, if present. Scheduled Appointments?? Future Appointments ?No Future Appointments Scheduled Follow-Up Instructions ?? With: Address: When: Thais Pollard [address] [facility] [address], [place] [facility] [place] [address] Business (1) Within 1 year Comments: Routine [employer] care. Follow-up 3 months if not having surgical intervention for pelvic pain. Diagnosis Encounter for screening for malignant neoplasm of cervix; Encounter for gynecological examination (general) (routine) without abnormal findings; Pelvic and perineal pain Medications: Please continue your medications until treatment is completed or stopped by your provider. Discuss any questions related to medications with your provider. New Medications [id number], [address], [place] [id number], [phone] Norethindrone (norethindrone 5 mg oral tablet) 1 tab(s) Oral Daily. Refills: 1. Next Dose: Allergy Info:?? Pollen; Dust Medications Given This Visit Future Orders ?No future orders Vital Signs Height 165 cm Weight BMI Blood Pressure 124 mm Hg/70 mm Hg Temperature Pulse Rate Respiratory Rate 02 Sat Mode of Delivery / You can now view a summary of your hospital visit from the comfort of your home through a free online portal called [employer]. [employer] is a website that allows you to securely view yourmedical information including discharge summary, medications and follow-up visits. ??You can also send a secure electronic message to your doctor???s office to request appointments, renew medications or just ask a question. You can enroll at [email or web address] or register during your next office visit. Disclaimer:?? The information provided is of a general nature and is intended to be used in conjunction with the recommendations and advice of your health care practitioner. ??Every effort has been made to ensure that the information provided is accurate and complete at the time it is provided to you however, as your needs change, or, as new ??information becomes available, different or additional instructions may be required. If you have questions, please consult with your primary care provider or pharmacist, as appropriate.??This information is not intended to serve as substitution for assessment and evaluation by a qualified health care provider. If you do not have a primary care provider, you may find a [facility] provider by calling [facility] [employer] at [phone]. For information about the plan of care including goals and instructions for your diagnosis, please see the patient education orders section of this document. Patient Education Materials?? The content of this educational material or handout may have been modified, supplemented, or adaptedfrom its original content and format to support your individualized medical care. Maribel Dixon: PERFORM, SIGN, VERIFY Event Display: Patient Education/Instruction Authored Date: [id number] [facility] *[facility] Clinical Summary Name CAITLIN BROWN Age 31 Years 1990 PCP Alonzo GONZALES, Vitor Schmidt PCP Visit Date 03/26/2022 15:02:00 Additional Instructions: Scheduled Appointments?? Future Appointments ?No Future Appointments Scheduled Follow-Up Instructions ?? Diagnosis Encounter for screening for malignant neoplasm of cervix; Encounter for gynecological examination (general) (routine) without abnormal findings; Pelvic and perineal pain Medications: Please continue your medications until treatment is completed or stopped by your provider. Discuss any questions related to medications with your provider. New Medications [id number], [address], [place] [id number], [phone] Norethindrone (norethindrone 5 mg oral tablet) 1 tab(s) Oral Daily. Refills: 1. Next Dose: Allergy Info:?? Pollen; Dust Medications Given This Visit Future Orders ?No future orders Vital Signs Height 165 cm Weight BMI Blood Pressure 124 mm Hg/70 mm Hg Temperature Pulse Rate Respiratory Rate 02 Sat Mode of Delivery / You can now view a summary of your hospital visit from the comfort of your home through a free online portal called [employer]. [employer] is a website that allows you to securely view yourmedical information including discharge summary, medications and follow-up visits. ??You can also send a secure electronic message to your doctor???s office to request appointments, renew medications or just ask a question. You can enroll at [email or web address] or register during your next office visit. Disclaimer:?? The information provided is of a general nature and is intended to be used in conjunction with the recommendations and advice of your health care practitioner. ??Every effort has been made to ensure that the information provided is accurate and complete at the time it is provided to you however, as your needs change, or, as new ??information becomes available, different or additional instructions may be required. If you have questions, please consult with your primary care provider or pharmacist, as appropriate.??This information is not intended to serve as substitution for assessment and evaluation by a qualified health care provider. If you do not have a primary care provider, you may find a [facility] provider by calling [facility] [employer] at [phone]. For information about the plan of care including goals and instructions for your diagnosis, please see the patient education orders section of this document. Patient Education Materials?? The content of this educational material or handout may have been modified, supplemented, or adaptedfrom its original content and format to support your individualized medical care. Patient Care team information Care Team PersonnelName: Naila GONZALES, Swapna Reich Position: [facility] SENIOR DOT NET DEVELOPER MD Member Role: [employer] SENIOR DOT NET DEVELOPER Physician Address: Address: [address] [place], [place] [address]s [facility] [place] [address]- Name: Vitor Rosado MD Position: [facility] Primary Care Physician Member Role: PCP Address: Address: [address] [place] [address]- Care Team Related PersonsName: RONNY BROWN Address: [place] [address] Name: VINNY BROWN Address: home [address] [place] [address]
--- OUTSIDE RECORDS SUMMARY | 2022-06-01 13:05 | XMS_ITS | Continuity of Care Document ---
:1990 Author Organization [facility] Address [address] [place] [address]- Care Team Providers Name Role Phone Alonzo GONZALES, Vitor Schmidt Primary Care Physician Encounter [facility] [place] Date(s): 05/11/22 - 05/18/22 [facility] [address] [place] [address] Attending Physician: Not on Staff, Attending MD Referring Physician: Triny Stockton MD Allergies, Adverse Reactions, Alerts Substance Reaction [...] 03/26/22 15:58:00 EST, Route to Pharmacy Electronically, [facility]/pharmacy #[id number], Partial fill upon patient request if the [...] Confirmed Active Depression with Confirmed Active anxiety Obese class I Confirmed Active Dyspareunia, Confirmed Active female Confirmed Active TMJ disease Confirmed Active 1HSV 1 genital lesion and on pap. Social History Social History Type Response Smoking Status Former smoker; Other: Quit 2 010; entered on: 09/20/13 Sex Note Event Display: [facility] Qm Consultant Transvaginal, Complete Authored Date: [id number] Gynecological Report PATIENT INFO: CMRN: [id number] BMRN: [id number] : [birth year] (31 yrs)(F) Name: CAITLIN LINARESKEVIN Visit Date: 05/11/2022 10:32 am PERFORMED BY: Performed By: Mariah Ward RDMS Attending: Caitlyn Quintanilla MD Referred By: Thais Pollard MD Location: [facility] #[id number] INDICATIONS: Pelvic pain R10.2 Pre-op exam Z01.818 COMPARISON: US (done in radiology) 01/06/19- Unremarkable pelvic ultrasound. HISTORY: Age: 31 P: 1 LMP: 04/21/22 Day Of Cycle: 21 Menses: Regular HX COMMENTS: Pre op vist for scheduled laparoscopy on 06/25/22. Pt has been having bad stomach pains that worsen with menses. UTERUS: Uterus: Present Position: Anteverted Anteflexed Size (cm) L: 8.43 W: 5.82 H: 3.88 Description: Heterogeneous echotexture MYOMAS: Site L(cm) W(cm) D(cm) Location Posterior 1.9 1.8 1.3 Subserosal Blood Flow RI PI Comments ENDOMETRIUM: Endometrium: Visualized Thickness(mm): 8.9 CERVIX: Normal appearance CUL-DE-SAC: No fluid was visualized RIGHT OVARY: Status: Visualized Size (cm) L: 1.89 W: 1.86 H: 2.53 Vol (ml): 4.66 Morphology: Normal appearance LEFT OVARY: Status: Visualized Size (cm) L: 2.87 W: 2.04 H: 2.74 Vol (ml): 8.4 Morphology: Cystic Type: Clear cyst Size (cm) L: 1.3 W: 1 H: 0.9 Vol (ml): 0.61 IMPRESSION: The myometrium is heterogenous and the uterus contains a 1.9 cm posterior myoma. Both ovaries appear normal with the left containing a corpus luteum. Caitlyn Quintanilla MD Electronically Signed Final Report 05/12/2022 08:22 am Event Display: [facility] Qm Consultant Transvaginal, Complete Authored Date: Please click on pdf link to open report Event Display: [facility] Qm Consultant Transvaginal, Complete Patient Care team information Care Team PersonnelName: Naila GONZALES, Swapna Reich Position: [facility] LIVE AMMUNITION INSPECTOR MD Member Role: [employer] LIVE AMMUNITION INSPECTOR Physician Address: Address: [address] [place] [address] [facility] [place] [address]- Name: Vitor Rosado MD Position: [facility] Primary Care Physician Member Role: PCP Address: Address: [address] [place] [address]- Care Team Related PersonsName: RONNY BROWN Address: [place] [address] Name: VINNY BROWN Address: home [address] [place] [address]
--- OUTSIDE RECORDS SUMMARY | 2022-06-01 13:05 | XMS_ITS | Continuity of Care Document ---
:1990 Author Organization [facility] Address [address] [place] [address]- Care Team Providers Name Role Phone Alonzo GONZALES, Vitor Schmidt Primary Care Physician Encounter [facility] [place] [place] Date(s): 11/06/19 - 12/06/19 [facility] [address] [place] [address]- [facility] Allergies, Adverse Reactions, Alerts Substance Reaction Severity [...]
--- OUTSIDE RECORDS SUMMARY | 2022-06-01 13:05 | XMS_ITS | Continuity of Care Document ---
:1990 Author Organization [facility] Adult Address [address] [place] [id number]- Care Team Providers Name Role Phone Vitor Rosado MD Primary Care Physician Encounter [facility] [place] Date(s): 02/01/22 - 03/03/22 [facility] Adult [address] [place] [id number]- Allergies, Adverse Reactions, Alerts Substance Reaction Severity Status Dust Active Pollen1 Active 1trees Immunizations Given and Recorded Vaccine Date Status Refusal Reason tetanus-diphtheria toxoids (Td) 09/08/20 Recorded tetanus/diphtheria/pertussis, acel(Tdap) 07/19/17 Recorde d tetanus/diphtheria/pertussis, acel(Tdap) 09/06/10 Given Problem List Condition Confirmation Course Effective Dates Status Health Stat us Informant Allergic rhinitis Confirmed Active COVID-19 virus Confirmed Active infection Herpes, genital Confirmed Active Migraine Confirmed Active Depression with Confirmed Active anxiety Dyspareunia, Confirmed Active female Confirmed Active TMJ disease Confirmed Active Social History Social History Type Response Smoking Status Former smoker; Other: Quit 2 010; entered on: 09/20/13 Sex Patient Care team information Care Team PersonnelName: Swapna Yoo MD Position: [facility] GOODWILL REPRESENTATIVE MD Member Role: Lifetime GOODWILL REPRESENTATIVE Physician Address: Address: [address] [place], [place] [address]s [facility] [place] [address]- Name: Vitor Rosado MD Position: [facility] Primary Care Physician Member Role: PCP Address: Address: [address] [place] [address]- Care Team Related PersonsName: RONNY BROWN Address: [place] [address] Name: VINNY BROWN Address: home [address] [place] [address]
--- OUTSIDE RECORDS SUMMARY | 2022-06-01 13:05 | XMS_ITS | Continuity of Care Document ---
:1990 Author Organization [facility] p Address [address] [place] [address]- Care Team Providers Name Role Phone Alonzo GONZALES, Vitor Schmidt Primary Care Physician Encounter [facility] [place] Date(s): 07/08/21 - 08/07/21 [facility] [address] [place] [phone]- Allergies, Adverse Reactions, Alerts Substance Reaction Severity Status Dust Active Pollen1 Active 1trees Immunizations Given and Recorded Vaccine Date Status Refusal Reason tetanus/diphtheria/pertussis, acel(Tdap) 09/06/10 Given Medications Diflucan 150 mg oral tablet 1 tablet = 150 mg, By Mouth, Once, # 1 tablet, 0 Refills, Soft Stop, 07/08/21 14:20:00 EDT, Tablet, [id number], Partial fill upon patient request if the prescription is for a schedule II opioiddrug., 165, cm, 03/29/20 8:13:00 EST, Height, 81.... Start Date: 07/08/21 Status: OrderedDiflucan 150 mg oral tablet 1 tablet = 150 mg, By Mouth, Every 48 hours, take 1 tablet today, then if still symptomatic in 48, #2 tablet, 0 Refills, Maintenance, 01/27/21 10:28:00 EST, Tablet, [id number], Partial fill upon patient request if the [...]
--- OUTSIDE RECORDS SUMMARY | 2022-06-01 13:05 | XMS_ITS | Continuity of Care Document ---
:1990 Author Organization [facility] Adult Address [address] [place] [address]- Care Team Providers Name Role Phone Alonzo GONZALES, Vitor Schmidt Primary Care Physician Encounter [facility] [place] Date(s): 07/24/20 - 08/23/20 [facility] Adult [address] [place] [address]- Attending Physician: Admtr, Matthew Admitting Physician: [id number] Referring Physician: Admtr, [id number] Allergies, Adverse Reactions, Alerts Substance Reaction Severity Status Dust Active Pollen1 Active 1trees Immunizations Given and Recorded Vaccine Date Status Refusal Reason tetanus/diphtheria/pertussis, acel(Tdap) 09/06/10 Given Medications amitriptyline 10 mg oral tablet 10 mg, 1, tablet, By Mouth, Daily at bedtime, # 30 tablet, Refills 2, Tot. Refills 2, Maintenance, 07/09/20 11:08:00 EDT, Route to Pharmacy Electronically, [id number], Partial fill upon patientrequest if the prescription [...]
--- OUTSIDE RECORDS SUMMARY | 2022-06-01 13:05 | XMS_ITS | Continuity of Care Document ---
:1990 Author Organization [facility] Adult Address [address] [place] [address]- Care Team Providers Name Role Phone Alonzo GONZALES, Vitor Schmidt Primary Care Physician [place] [facility] [place] 09/29/21 - 10/29/21 [facility] Adult [address] [place] [address]- Allergies, Adverse Reactions, Alerts Substance Reaction Severity Status Dust Active Pollen1 Active 1trees Immunizations Given and Recorded Vaccine Date Status Refusal Reason tetanus-diphtheria toxoids (Td) 09/08/20 Recorded tetanus/diphtheria/pertussis, acel(Tdap) 07/19/17 Recorde d tetanus/diphtheria/pertussis, acel(Tdap) 09/06/10 Given Medications Diflucan 150 [...] Status Health Status Informant Allergic rhinitis(Confirmed) Active COVID-19 virus infection(Confirmed) Active Herpes, genital(Confirmed) Active Migraine(Confirmed) Active Depression with anxiety(Confirmed) Active Dyspareunia, female(Confirmed) Active (Confirmed) Active TMJ disease(Confirmed) Active Social History Social History Type Response Smoking Status Former smoker; Other: Quit 2 010; entered on: 09/20/13 Sex
[2022-06-01 13:56] LABS: Hematocrit 42.5 % (37.0-47.0); Hemoglobin 14.5 g/dl (12.0-16.0); Mean Corpuscular HGB Conc 34.1 g/dl (31.0-35.0); Mean Corpuscular Volume 87.8 fL (80.0-98.0); Mean Platelet Volume 9.1 fL (9.4-12.3); Platelet Count 297 X10*3/uL (160-400); Red Blood Count 4.84 X10*6/uL (4.20-5.50); Red Cell Distribution Width 12.8 % (11.0-16.0); White Blood Count 11.2 X10*3/uL (4.8-10.8)
[2022-06-01 14:11] LABS: Anion Gap 17 (12-20); Blood Urea Nitrogen 12 mg/dL (9-16); Calcium 9.5 mg/dL (8.4-10.2); Carbon Dioxide 19 mmol/L (22-29); Chloride 110 mmol/L (96-108); Creatinine Clr Calc Pharmacy 105.6; Estimated Glomerular Filt Rate > 60; Glucose Random 99 mg/dL (60-115); Potassium 4.1 mmol/L (3.3-5.1); Sodium 142 mmol/L (135-145)
--- NOTE | 2022-06-01 14:21 | ED.NAVMDI ---
HPI - Nausea/Vomiting/Diarrhea General Chief complaint: Nausea/Vomiting/Diarrhea Stated complaint: VOMITING/DIARRHEA,WEAK PER EMS Time Seen by Provider: 06/01/22 12:58 Source: patient Mode of arrival: ambulatory History of Present Illness HPI Narrative: 31-year-old female who presents with multiple episodes of nausea, vomiting, diarrhea that started in the middle the night. Patient states that she had video Burger last night that she purchased and she was the only 1 who ate it, she feels that this may have been the source. She otherwise denies fevers but states that she has had some chills likely secondary to her nausea vomiting and diarrhea. She otherwise denies any urinary symptoms. Related Data Previous Rx's Medication Instructions Recorded cyclobenzaprine 10 mg tablet 10 mg PO TID PRN muscle spasm #14 07/20/20 tabs ibuprofen 600 mg tablet 600 mg PO Q6H PRN pain #30 tabs 07/20/20 lidocaine 4 % topical patch 1 patch topical DAILY PRN pain #10 07/20/20 ea ondansetron 4 mg disintegrating 4 mg PO Q8H PRN nausea and 07/20/20 tablet vomiting #20 tabs ondansetron HCl 4 mg tablet 4 mg PO Q8H 1 day #7 tabs 06/01/22 Allergies Allergy/AdvReac Type Severity Reaction Status Date / Time No Known Allergies Allergy Unverified 12/07/19 16:17 Review of Systems Review of Systems: Pertinent positives and negatives as stated in HPI [facility] Past Medical History Source: nursing notes reviewed Medical History Asthma Social History Social History Alcohol intake: never Smoked in Last 30 Days: No Use of substances other than those prescribed or required for medical reasons: No Advance Directives: No Advance Directives Information Provided: Yes Physical Exam Vital Signs: Vital Signs: Last Vital Signs Temp 98.7 F 06/01/22 12:21 Pulse 89 06/01/22 12:21 Resp 16 06/01/22 12:21 BP 146/83 H 06/01/22 12:21 Pulse Ox 98 06/01/22 12:21 O2 Del Method 06/01/22 12:21 BMI result Body Mass Index 32.5 VITAL SIGNS: Reviewed. GENERAL: Well developed, well nourished, in no acute distress. HEAD: Normocephalic/atraumatic EYES: PERRLA, EOMI LUNGS: Normal breath sounds. No adventitious sounds or accessory muscle use. SpO2<98> CARDIOVASCULAR: Regular rate and rhythm without noted murmurs ABDOMEN: Soft, non-tender, non-distended with bowel sounds. MUSCULOSKELETAL: No tenderness, deformities, or effusions noted on gross inspection. EXTREMITIES: No cyanosis, clubbing or edema. SKIN: Inspection of the skin reveals no rashes NEUROLOGIC: Alert and oriented x 4. Strength and sensation to light touch were grossly intact x 4. Medications Administered Discontinued Medications Generic Name Dose Route Start Last Admin Trade Name Freq PRN Reason Stop Dose Admin Acetaminophen 650 mg 06/01/22 14:19 06/01/22 14:30 Acetaminophen 325 Mg Tablet PO 06/01/22 14:20 650 mg ONCE ONE Administration Ondansetron HCl 4 mg 06/01/22 14:04 06/01/22 14:30 Ondansetron Odt 4 Mg Tab.Rapdis TRANSLINGU 06/01/22 14:05 4 mg ONCE ONE Administration Medical Decision Making Medical Decision Making MDM Narrative: 31-year-old female with history and clinical presentation after review of all investigations my interpretation is patient has acute food poisoning that has resulted in nausea, vomiting, diarrhea. consistent with food contamination. Patient has had no further episodes of nausea or vomiting after receiving Zofran and currently is not having any further diarrhea. She is tolerating oral intake and otherwise appears well and hemodynamically stable. She is discharged home with Zofran and instructions to take regularly for the next 24 hours and continue to rehydrate with water and Gatorade and and then will likely be able to taper that off afterwards. Differential Diagnosis Please see the discussion above Lab Data Please see the discussion above 06/01/22 13:46 06/01/22 13:46 Labs: Lab Results 06/01/22 06/01/22 06/01/22 Range/Units 13:46 13:46 13:46 WBC 11.2 H (4.8-10.8) X10*3/uL RBC 4.84 (4.20-5.50) X10*6/uL Hgb 14.5 (12.0-16.0) g/dl Hct 42.5 (37.0-47.0) % MCV 87.8 (80.0-98.0) fL MCH 30.0 (27.0-33.0) pg MCHC 34.1 (31.0-35.0) g/dl RDW 12.8 (11.0-16.0) % Plt Count 297 (160-400) X10*3/uL MPV 9.1 L (9.4-12.3) fL Absolute Nucleated RBC 0.000 (0.0-0.012) X10*3/uL Nucleated RBC % (auto) 0.0 (0.0-0.2) /100WBC Sodium 142 (135-145) mmol/L Potassium 4.1 (3.3-5.1) mmol/L Chloride 110 H (96-108) mmol/L Carbon Dioxide 19 L (22-29) mmol/L Anion Gap 17 (12-20) BUN 12 (9-16) mg/dL Creatinine 0.82 (0.5-1.4) mg/dL Estim Creat Clear Calc 105.6 Estimated GFR > 60 Random Glucose 99 (60-115) mg/dL Calcium 9.5 (8.4-10.2) mg/dL Urine Color Urine Appearance Urine pH (5.0-9.0) Ur Specific [place] (1.005-1.025) Urine Protein (Neg-Trace) mg/dL Urine Glucose (UA) (Negative) mg/dL Urine Ketones (Negative) mg/dL Urine Blood (Negative) Urine Nitrite (Negative) Ur Leukocyte Esterase (Negative) Urine Test (NEGATIVE) Influenza Type A (PCR) NEGATIVE (Negative) Influenza Type B (PCR) NEGATIVE (Negative) RSV RNA Qual (PCR) NEGATIVE (Negative) SARS-CoV-2 RNA (RT-PCR) NEGATIVE (Negative) 06/01/22 06/01/22 Range/Units 14:24 14:24 WBC (4.8-10.8) X10*3/uL RBC (4.20-5.50) X10*6/uL Hgb (12.0-16.0) g/dl Hct (37.0-47.0) % MCV (80.0-98.0) fL MCH (27.0-33.0) pg MCHC (31.0-35.0) g/dl RDW (11.0-16.0) % Plt Count (160-400) X10*3/uL MPV (9.4-12.3) fL Absolute Nucleated RBC (0.0-0.012) X10*3/uL Nucleated RBC % (auto) (0.0-0.2) /100WBC Sodium (135-145) mmol/L Potassium (3.3-5.1) mmol/L Chloride (96-108) mmol/L Carbon Dioxide (22-29) mmol/L Anion Gap (12-20) BUN (9-16) mg/dL Creatinine (0.5-1.4) mg/dL Estim Creat Clear Calc Estimated GFR Random Glucose (60-115) mg/dL Calcium (8.4-10.2) mg/dL Urine Color Dark Yellow Urine Appearance Turbid Urine pH 5.0 (5.0-9.0) Ur Specific [place] 1.025 (1.005-1.025) Urine Protein Negative (Neg-Trace) mg/dL Urine Glucose (UA) Negative (Negative) mg/dL Urine Ketones Trace (Negative) mg/dL Urine Blood Negative (Negative) Urine Nitrite Negative (Negative) Ur Leukocyte Esterase Negative (Negative) Urine Test NEGATIVE (NEGATIVE) Influenza Type A (PCR) (Negative) Influenza Type B (PCR) (Negative) RSV RNA Qual (PCR) (Negative) SARS-CoV-2 RNA (RT-PCR) (Negative) Discharge Plan Discharge Clinical Impression: Food contamination, Nausea vomiting and diarrhea Patient Disposition: Home, Self-Care Instructions: Acute Diarrhea (ED), Food Poisoning (ED), Nutrition Tips for Relief of Diarrhea (ED) Additional Instructions: 1. You have received a prescription for your nausea, take it regularly every 6 hours for the next 24 hours and continue to hydrate with water and Gatorade and then afterwards you will likely not require any further Zofran. 2. Follow-up with your primary care provider in the next 1-2 days for re-evaluation. Return to the ER for any worsening symptoms. Prescriptions: New ondansetron HCl 4 mg tablet 4 mg PO Q8H 1 Days Qty: 7 0RF Rx Instructions: First 24 hours patient should take scheduled every 8 hours and then switch to as needed for nausea and vomiting No Action cyclobenzaprine 10 mg tablet 10 mg PO TID PRN (Reason: muscle spasm) Qty: 14 0RF lidocaine 4 % adhesive patch,medicated 1 patch topical DAILY PRN (Reason: pain) Qty: 10 0RF Rx Instructions: may leave on for up to 12 hrs ibuprofen 600 mg tablet 600 mg PO Q6H PRN (Reason: pain) Qty: 30 0RF ondansetron 4 mg tablet,disintegrating 4 mg PO Q8H PRN (Reason: nausea and vomiting) Qty: 20 0RF Referrals: Vitor Rosado MD [Primary Care Provider] -
[2022-06-01] MEDS: Ondansetron ODT 4 MG TAB.RAPDIS TRANSLINGU (14:30)
[2022-06-01] MEDS: Acetaminophen 325 MG TABLET 650 MG PO (14:30)
[2022-06-01 14:34] LABS: Appearance Urine Turbid; Color Urine Dark Yellow; Glucose Urine UA Negative (Negative); Leukocyte Esterase Urine Negative (Negative); Nitrite Urine Negative (Negative); Specific Gravity - Urine 1.025 (1.005-1.025); Urine Blood Negative (Negative); Urine Ketones Trace mg/dL (Negative); Urine Protein Negative (Neg-Trace)
[2022-06-01 14:36] LABS: UPreg QC Valid YES; Urine Pregnancy NEGATIVE (NEGATIVE)
[2022-06-01 14:39] LABS: Influenza A PCR NEGATIVE (Negative); Influenza B PCR NEGATIVE (Negative); Resp Syncy Virus RNA Qual PCR NEGATIVE (Negative); SARS COV2 PCR INHOUSE NEGATIVE (Negative)
== END 2022-06-01 16:50 | disposition home or self-care (01) ==
PROVIDERS: Emergency Provider Student in an Organized Health Care Education/Training Program; PCP Family Medicine
DX: A05.9 Bacterial foodborne intoxication, unspecified (principal); R11.2 Nausea with vomiting, unspecified; Z20.822 Contact with and (suspected) exposure to COVID-19; Z20.828 Contact with and (suspected) exposure to other viral communicable diseases; Z79.899 Other long term (current) drug therapy
CPT/HCPCS: 0241U; 80048; 81003; 81025; 85027; 99283; 99284